=== PATIENT | female | born 1990 | race Caucasian/White ===

== ENCOUNTER 2022-11-09 08:00 | Outpatient (CLI) | payer OTHER ==
[2022-11-09 22:21] LABS: CHLAMYDIA TRACHOMATIS DNA NEGATIVE (NEGATIVE); NEISSERIA GONORRHOEAE DNA NEGATIVE (NEGATIVE)
[2022-11-09 22:55] LABS: BACTERIAL VAGINOSIS DNA NEGATIVE (NEGATIVE); CANDIDA KRUSEI DNA NEGATIVE (NEGATIVE)
[2022-11-09 22:56] LABS: CANDIDA GLABRATA DNA NEGATIVE (NEGATIVE); CANDIDA GROUP DNA NEGATIVE (NEGATIVE); TRICHOMONAS VAGINALIS DNA NEGATIVE (NEGATIVE)
== END 2022-11-09 23:59 | disposition home or self-care (01) ==
LOC: LAB 08:00
PROVIDERS: ATTEND Physician Assistant
DX: Z11.3 Encounter for screening for infections with a predominantly sexual mode of transmission (principal)
CPT/HCPCS: 81514; 87491; 87591; 87661

== ENCOUNTER 2023-03-23 18:07 | Emergency (ER) | payer OTHER ==
[2023-03-23 18:24] VITALS: BP 127/83; O2SAT 99
--- NOTE | 2023-03-23 18:53 | XRAY Report ---
PROCEDURE: Knee 4 View RT INDICATIONS: Trauma TECHNIQUE: 4 views of the right knee(s) were acquired. COMPARISON: None. FINDINGS: Bones: No fractures or dislocations. No suspicious bony lesions. Soft tissues: Small knee joint effusion. No suspicious soft tissue calcifications or masses. IMPRESSION: No acute bony abnormality. Small knee joint effusion. Reviewed by: Yoandy Ricardo on 03/23/2023 6:52 PM PDT Approved by: Yoandy Ricardo on 03/23/2023 6:52 PM PDT Station ID: [id number]
--- NOTE | 2023-03-23 20:10 | ED Physician Documentation ---
History of Present Illness - Stated complaint Stated Complaint: RT KNEE INJ - Chief complaint Chief Complaint: Trauma Ext - History obtained from History obtained from: Patient - History of Present Illness Timing: Today Pain level max: 5 Pain level now: 5 - Additonal information Additional information: 32 year old female with a R knee injury. States she was stepping out of a trailer when she fell and injured the R knee. Worse with movement, better with rest. No swelling. No numbness or tingling. No deformity. No other injuries. No head, neck, back pain. Review of Systems : denies: Now [facility] PAST MEDICAL HISTORY - Past Medical History Past Medical History: No - Past Surgical History Past Surgical History: No - Present Medications Home Medications: Ambulatory Orders Medication Instructions Recorded Confirmed Dextroamphetamine/Amphetamine 15 mg PO DAILY 03/23/23 03/23/23 [Adderall Xr 5 mg Capsule] Dextroamphetamine/Amphetamine 10 mg PO DAILY 03/23/23 03/23/23 [Dextroamp-Amphetamine 5 mg Tab] Levonorgestrel/Ethinyl 03/23/23 - Allergies Allergies/Adverse Reactions: Allergies Allergy/AdvReac Type Severity Reaction Status Date / Time No Known Drug Allergies Allergy Verified 03/23/23 18:12 - Social History Does the pt smoke?: No Does the pt drink ETOH?: Yes Substance Use and Type: Marijuana - Immunizations Immunizations are current?: Yes PD ED PE NORMAL - Vitals Vital signs reviewed: Yes - General General: Alert and oriented X 3, No acute distress - HEENT HEENT: Moist mucous membranes - Neck Neck: Supple, no meningeal sign - Derm Derm: Warm and dry - Extremities Extremities: Other (Right knee - Mild joint effusion. ACL, MCL, PCL, LCL are intact. Unable to tolerate meniscus testing well. Neurovascular intact. No bony tenderness around the knee.) - Neuro Neuro: Alert and oriented X 3 - Psych Psych: Normal mood, Normal affect Results - Vitals Vitals: Vital Signs - 24 hr 03/23/23 18:13 Temperature 37.1 C Heart Rate 73 Respiratory 16 Rate Blood Pressure 127/83 H O2 Saturation 99 Oxygen O2 Source Room air - Rads (name of study) Right knee x-ray Relevant Findings:: Final report received, See rad report PD Medical Decision Making - ED course Complexity details: reviewed results, considered differential, d/w patient, d/w family ED course: 32-year-old female with what appears to be a right knee sprain accompanied by a small joint effusion. Unable to tolerate meniscus testing, placed in articulati ng knee brace. We will have her follow-up with her doctor and/or orthopedics for further care. No evidence of fracture. No evidence of ACL, MCL, PCL, LCL tear. Patient counseled regarding signs and symptoms for which I believe and urgent re-evaluation would be necessary. Patient with good understanding of and agreement to plan and is comfortable going home at this time This document was made in part using voice recognition software. While efforts are made to proofread this document, sound alike and grammatical errors may occur. Departure - Departure Disposition: 01 Home, Self Care Clinical Impression: Knee effusion, right Knee sprain Qualifiers: Encounter type: initial encounter Involved ligament of knee: unspecified ligament Laterality: right Qualified Code(s): S83.91XA - Sprain of unspecified site of right knee, initial encounter Condition: Good Instructions: ED Effusion Knee, ED Sprain Knee Follow-Up: your,doctor in 1 week [Other] Orthopedic Care [Provider Group] Comments: Continue Motrin and Tylenol as needed for pain. You may bear weight as aurora ated. Compress the area, ice the area and elevate the area as much as possible, this will help with swelling. You do have a small amount of swelling inside the joint as discussed today. Usually these will heal over the next several days to a week, if you are still having symptoms in 1 week, you should be reevaluated by your doctor. Please return if you worsen. Your x-ray does not show any acute abnormalities other than a mild amount of swelling in the joint. Forms: PCP List, Activity restrictions Discharge Date/Time: 03/23/23 20:19
== END 2023-03-23 20:19 | disposition home or self-care (01) ==
LOC: ED 18:07
DX: S83.91XA Sprain of unspecified site of right knee, initial encounter (principal); M25.461 Effusion, right knee; W17.89XA Other fall from one level to another, initial encounter
CPT/HCPCS: 99282; 99283